=== PATIENT | male | born 1945 | race Caucasian/White ===

== ENCOUNTER 2023-12-09 07:31 | Day surgery (SDC) | payer MEDICARE, MEDICAID ==
[2023-12-05 15:10] VITALS: BMI 26.4
[2023-12-09] MEDS ORDERED: Sevoflurane 250 ML INH ANEST BOTTLE ONE (07:44)
[2023-12-09] MEDS ORDERED: SUGAMMADEX SODIUM 200 MG/2 ML VIAL ONE (08:07)
[2023-12-09] MEDS ORDERED: Ondansetron PF 4 MG/2 ML Vial ONE (08:07)
[2023-12-09] MEDS ORDERED: Dexamethasone 4 mg/ml Vial ONE (08:07)
[2023-12-09] MEDS ORDERED: Lidocaine 2% PF 5 ML VIAL ONE (08:07)
[2023-12-09] MEDS ORDERED: Rocuronium Bromide 10 MG/ML (10ML VIAL) ONE (08:07)
[2023-12-09] MEDS ORDERED: PROPOFOL 20 ML ONE ×2 (08:08→08:48)
[2023-12-09] MEDS ORDERED: fentaNYL 50 mcg/mL 1 mL Vial ONE (08:10)
[2023-12-09] MEDS ORDERED: Bupivacaine HCl 0.5%/Epinephrine 1:200,000/PF 30 ml Vial ONE (08:22)
[2023-12-09] MEDS ORDERED: CEFAZOLIN 2 GM VIAL ONE (08:49)
[2023-12-09] MEDS ORDERED: ePHEDrine Sulfate 50 MG/10 ML VIAL ONE (08:50)
[2023-12-09] MEDS ORDERED: PHENYLEPHRINE-NS 100 MCG/ML 10 ML SYRINGE ONE (09:25)
[2023-12-09] MEDS ORDERED: Bupivacaine/Epinephrine 0.25% 30 ML VIAL ONE (09:43)
[2023-12-09] MEDS ORDERED: Phenylephrine 10 MG/ML VIAL ONE (10:22)
[2023-12-09] MEDS ORDERED: Acetaminophen 500 MG TAB ONE (10:40)
== END 2023-12-09 11:30 | disposition home or self-care (01) ==
LOC: CSHSDC 07:31
PROVIDERS: ATTEND Surgery
PROC: 0JH63WZ Insertion of Totally Implantable Vascular Access Device into Chest Subcutaneous Tissue and Fascia, Percutaneous Approach (ICD-10-PCS; principal; 2023-12-09)
DX: C07 Malignant neoplasm of parotid gland (principal); R63.4 Abnormal weight loss; I10 Essential (primary) hypertension; K21.9 Gastro-esophageal reflux disease without esophagitis; Z98.890 Other specified postprocedural states; Z68.26 Body mass index [BMI] 26.0-26.9, adult; Z79.899 Other long term (current) drug therapy
CPT/HCPCS: 36561; 71045; A6258; B4087; C1788; J1100; J1642; J2371; J2405; J2704; J3010